=== PATIENT | male | born 1985 | race Caucasian/White ===

== ENCOUNTER 2021-01-31 11:34 | Emergency (ER) | payer OTHER ==
[~2021-01-31] VITALS: Ht 172.7 cm; Wt 74.8 kg
[2021-01-31] MEDS ORDERED: TUMS200 MG PO (12:11)
[2021-01-31 15:16] VITALS: BP 148/80
== END 2021-01-31 15:17 | disposition left against medical advice (07) ==
LOC: ER 11:34
DX: S43.005A Unspecified dislocation of left shoulder joint, initial encounter (principal); Z98.890 Other specified postprocedural states; Z79.899 Other long term (current) drug therapy; W22.8XXA Striking against or struck by other objects, initial encounter; Y93.89 Activity, other specified; Y92.89 Other specified places as the place of occurrence of the external cause; Y99.9 Unspecified external cause status